=== PATIENT | female | born 1945 | race Caucasian/White ===

== ENCOUNTER → 2016-10-31 | Outpatient (CLI) | payer OTHER | LOC: EDBD → SLEEPLAB 09:51 | DX: G47.33 Obstructive sleep apnea (adult) (pediatric) (principal) ==

== ENCOUNTER 2020-01-15 09:06 | Inpatient (IN) | payer OTHER ==
[2020-01-09 14:07] LABS: HEMATOCRIT 33.6 % (37.0-47.0); HEMOGLOBIN 11.4 gm/dL (12.0-15.0); MCH 31.3 pg (26.0-34.0); MCHC 33.8 g/dL (28.0-37.0); MCV 92.6 fL (80.0-100.0); RBC 3.63 mil/uL (4.20-5.00); RDW 14.3 % (10.5-14.5); WBC 5.4 thou/uL (4.0-11.0)
[2020-01-09 14:26] LABS: ALBUMIN 3.9 g/dL (3.4-5.0); CALCIUM 9.1 mg/dL (8.5-10.1); CREATININE 0.9 mg/dL (0.6-1.0); INR 1.1; POTASSIUM 4.3 mmol/L (3.5-5.1); PROTIME 10.9 Seconds (9.3-11.4)
[2020-01-09 15:23] LABS: URINE BILIRUBIN NEGATIVE (Negative); URINE BLOOD 1+ (Negative); URINE CLARITY CLOUDY; URINE COLOR YELLOW; URINE GLUCOSE-RANDOM* NEGATIVE (Negative); URINE KETONES NEGATIVE (Negative); URINE NITRITE-REFLEX NEGATIVE (Negative); URINE PROTEIN (DIPSTICK) NEGATIVE (Negative); URINE UROBILINOGEN 0.2 E.U./dl (0.2-1.0)
[2020-01-09 15:24] LABS: URINE LEUKOCYTES-REFLEX 2+ (Negative)
[2020-01-09 15:46] LABS: BACTERIA-REFLEX >30 Many /HPF (None Seen); CASTS None Seen /LPF (None Seen); CRYSTALS None Seen /LPF (None Seen); SQUAMOUS 4-10 Moderate /LPF (0-3); URINE WBC-REFLEX >25 Many /HPF (0-5)
--- NOTE | 2020-01-09 15:58 | EKG ---
[facility] [place] [address] ELECTROCARDIOGRAM REPORT Name: GIOVANNI ANTHONY Room #: PRE IN M..#: [id number] Admission: Attend Phys: Melquiades Johnson MD Discharge: Date of : 47 Report #: [id number] THIS REPORT FOR: cc: Annia Rodríguez MD, Carole A. MD Lundgren,Eric Power MD [facility] ~ THIS REPORT FOR: //name// [facility] Test Date: 2020-01-09 Test Time: 14:09:05 Pat Name: GIOVNANI ANTHONY Department: Room: Gender: Technical Producer: Ming AVILA : 1945 Requested By: Melquiades Johnson Order Number: [id number] MD: Eric Eisenberg Measurements Intervals [place] Rate: 85 P: OR: 143 QRS: 33 QRSD: 100 T: 33 QT: 389 QTc: 463 Interpretive Statements Atrial-paced complexes Otherwise no significant abnormality No previous ECG available for comparison Electronically Signed On 01-09-2020 15:58:30 LOGGING SUPERVISOR by Eric Eisenberg [email or web address] <ELECTRONICALLY SIGNED> By: Eric Eisenberg MD, FAC 01/09/20 1558 1409 1409 Eric Eisenberg MD, [facility] /EPI
[2020-01-10 07:08] LABS: GLYCOHEMOGLOBIN (HGB A1C) 5.4 % (4.8-5.6)
[~2020-01-15] VITALS: Ht 157.5 cm; Wt 97.1 kg
[~2020-01-15 09:06] MED LIST: ASA81BEC PO; ATIVAN0.5 M1 PO; CALCIUM-MAGNES1 EAC6 PO; CIPRO500 M1 PO; FISH OIL 1,001000 M3 PO; LAMOTRIGINE100 MG PO; LIPITOR80 MG PO; LOSARTAN POTASS50 MG PO; MAGNESIUM OXID200 MG PO; METFORMIN HCL500 M3 PO; MULTI VITAMIN1 EACH PO; MUPIROCIN15 GM TOP; NORVASC10 MG PO; PROBIOTIC1 EAC3 PO; PROCTO-MED HC30 GM TOP; TOPROL XL25 MG PO; TURMERIC COMPL1 EACH PO; VITAMIN C1000 MG PO; VITAMIN D31250 MC1 PO; WELLBUTRIN XL300 MG PO; ZINC50 M1 PO; [UNRECOGNIZED DRUG - OTHER] PO
[2020-01-15 14:26] VITALS: BP 149/89
[2020-01-15 19:38] VITALS: BP 124/68
[2020-01-16 03:26] VITALS: BP 108/64
[2020-01-16 03:39] LABS: HEMOGLOBIN 8.4 gm/dL (12.0-15.0); MCH 31.3 pg (26.0-34.0); MCHC 33.7 g/dL (28.0-37.0); MCV 92.9 fL (80.0-100.0); RBC 2.69 mil/uL (4.20-5.00); RDW 14.4 % (10.5-14.5); WBC 7.2 thou/uL (4.0-11.0)
--- NOTE | 2020-01-16 07:53 | NUR ---
PT C/O PAIN ON HER R KNEE,MANAGED WITH MED.PT INCONT ,DIONICIO CARE DONE.PT ENCOURAGED TO GET OUT OF BED TO THE BSC,PT STATED THAT SHE COULDN'T AT THE MOMENT.PT REPOSITIONED WHILE IN BED.DRSG TO HER R KNEE DRY AND INTACT.PT ENCOURAGED TO USE HER INCENTIVE SPIROMETER.PT SLEPT WITH CPAP AT HS.REPORT TO AM NURSE.
[2020-01-16 08:07] VITALS: BP 116/60
[2020-01-16 09:04] LABS: POTASSIUM 4.6 mmol/L (3.5-5.1)
--- NOTE | 2020-01-16 11:55 | NUR ---
PT CARE ASSUMED AT 0700. A&Ox4. PT TOLERATING WELL WELL WITH PAIN MEDICATION ON BOARD. PT BUCKELING AND NOT OUT OF BED UNTIL EVALUATED WITH PT. PT WILL NEED REHAB PER PT. CONSULT REQUESTED. TOM DRESSING IN PLACE, DRY AND INTACT. POLARPACK/TEDS/SCD'S IN PLACE. IV PATENT WITH NO REDNESS OR EDEMA. ACHS WITH NO COVERAGE NEEDED THIS SHIFT. COLOSTOMY TAY. PT DOES SELF CARE. IS IN ROOM AND ENCOURAGED. PER PACU PT WILL NEED TO HAVE A NEW BATTERY PLACED ON HER PACEMAKER IN APPROX.8-9 MONTHS. IV PATENT WITH NO REDNESS OR EDEMA,SALINE LOCKED. FALL PROTOCOL IN PLACE. CALL LIGHT IN REACH. WILL CONTINUE TO MONITOR.
--- NOTE | 2020-01-16 14:48 | NUR ---
ASSESSMENT: CM REVIEWED CHART AND SPOKE WITH PATIENT. PT IS S/P R TKR. PT IS ALERT AND ORIENTED X4. PT LIVES IN A HOUSE WITH HER . PT REPORTS ABOUT 3 STEPS WITH HANDRAIL TO ENTER BUT REPORT SHE CAN GO UP A RAMP IF NEEDED. PT REPORTS ONCE INSIDE ALL HER NEEDS ARE ON ONE LEVEL. PT REPORTS HAVING A GRAB BAR AND SHOWER CHAIR AND IS INDEPENDENT WITH ADLS. PT REPORTS HAVING A WALKER AT HOME. PT REPORTS HAVING [facility] IN THE PAST AND PREFERS TO USE THEM AGAIN. PER ATTENDING PLANS ARE FOR PATIENT TO CONTINUE WITH PT/OT AND POSSIBLE DISCHARGE SUNDAY WITH HH VS SNF PENDING HER PROGRESSION. PT REPORTS SHE PREFERS TO GO HOME WITH HH RATHER THEN SNF. [facility] CAN ACCEPT PATIENT FOR HH AT DISCHARE. CONTACT FOR [facility] IS [phone]. FAX FOR [facility]:[phone].
[2020-01-16 15:33] VITALS: BP 100/42
[2020-01-16 16:05] VITALS: BP 100/42
[2020-01-16] MEDS ORDERED: NEURONTIN 300M300 M2 PO (18:09)
[2020-01-16] MEDS ORDERED: DULOXETINE HCL60 MG PO (18:10)
[2020-01-16 22:00] VITALS: BP 104/57
--- NOTE | 2020-01-17 03:41 | NUR ---
ASSUMED PT CARE AT SHIFT CHANGE. PT IS A&OX4. PT HAS A LAC SALINE LOCKED AND PATENT. PT TAKES PAIN MEDICATION FOR HER KNEE. PT IS IN CHAIR AND IS A MAX ASSIST TO GET BACK TO BED. PT STATES THAT SHE IS AFRAID TO FALL. RE ASSURED THE PT THAT WE WOULD NOT LET HER FALL. PT HAS A TOM DRESSING ON HER RIGHT KNEE IS C/D/I. KNEE HIGH SYLVIA HOSE IN PLACE. POLAR PACK IS IN USE. PT IS AN ACHS. PT STATES THAT SHE FEELS IT WOULD BE TOO DIFFICULT TO USE THE BSC AND THAT SHE WOULD JUST USE HER BRIEF. PT HAS AN UPPER LEFT ABD COLOSTOMY WHICH SHE MAINTAINS HERSELF. PT USES CPAP AT NIGHT. WILL CONTINUE TO MONITOR.
[2020-01-17 05:00] VITALS: BP 119/60
[2020-01-17 05:32] LABS: HEMATOCRIT 21.6 % (37.0-47.0); HEMOGLOBIN 7.2 gm/dL (12.0-15.0); MCH 31.3 pg (26.0-34.0); MCHC 33.3 g/dL (28.0-37.0); MCV 94.1 fL (80.0-100.0); RBC 2.3 mil/uL (4.20-5.00); RDW 14.7 % (10.5-14.5); WBC 5.8 thou/uL (4.0-11.0)
[2020-01-17 07:59] VITALS: BP 147/74
[2020-01-17 15:59] VITALS: BP 114/58
[2020-01-17 20:10] VITALS: BP 123/52
--- NOTE | 2020-01-18 01:00 | NUR ---
ASSUMED PT CARE AT 1915. PT IS A&OX4. PT HAS AN IV IN HER LEFT HAND THAT IS PATENT. PT TOLERATES MEDICATION. PT IS ON ROOM AIR. PT IS INCONTINENT. STOOL SAMPLE COLLECTED AND SENT TO LAB. PT HAS AN UPPER LEFT ABDOMINAL COLOSTOMY - THAT SHE MANAGES ON HER OWN. PT IS A MAX ASSIST AND HAS A FEAR OF FALLING. PT IS AN ACHS - BLOOD SUGAR IS 107. PT DENIES NAUSEA. PT COMPLAINS OF PAIN IN HER RIGHT KNEE AND ALL OVER HER BODY. AT THE BEGINING OF THE SHIFT THE PT HAD AN EPISODE OF CRYING BECAUSE SHE SAID THAT ALL DAY NO ONE WOULD ANSWER THE PHONE WHEN SHE CALLED OUT. I RE ASSURED HER THAT SHE WOULD BE TAKEN CARE OF WHEN EVERY SHE CALLED OUT. SHE THEN COMPLAINED OF NOT BEING ABLE TO WALK AND HER LEGS NOT WORKING. PT HAS A TEMP OF 100.2. I RE CHECKED HER TEMP IT WAS 99.1 I ADMINISTERED TYLENOL. HOURLY ROUNDING DONE.
--- NOTE | 2020-01-18 03:57 | NUR ---
THE RN OVERSEEING PATIENT CARE, I AGREE WITH THE ASSESSMENT AND NOTES BY PROGRAM SERVICES ASSISTANT ON THIS PATIENT.
[2020-01-18 05:29] LABS: HEMATOCRIT 20.2 % (37.0-47.0); HEMOGLOBIN 6.9 gm/dL (12.0-15.0); MCH 31.8 pg (26.0-34.0); MCV 93.5 fL (80.0-100.0); RBC 2.16 mil/uL (4.20-5.00); RDW 14.7 % (10.5-14.5); WBC 5.1 thou/uL (4.0-11.0)
[2020-01-18 07:31] VITALS: BP 147/82
[2020-01-18 10:07] VITALS: BP 103/45; BP 109/54; BP 109/60; BP 125/57; BP 127/64
[2020-01-18 14:02] LABS: URINE BILIRUBIN NEGATIVE (Negative); URINE BLOOD 2+ (Negative); URINE CLARITY SL CLOUDY; URINE COLOR YELLOW; URINE GLUCOSE-RANDOM* NEGATIVE (Negative); URINE KETONES NEGATIVE (Negative); URINE NITRITE-REFLEX NEGATIVE (Negative); URINE PROTEIN (DIPSTICK) NEGATIVE (Negative); URINE SPECIFIC GRAVITY 1.025 (1.005-1.035); URINE UROBILINOGEN 0.2 E.U./dl (0.2-1.0)
[2020-01-18 14:07] LABS: URINE LEUKOCYTES-REFLEX 3+ (Negative)
[2020-01-18 14:11] LABS: MUCUS >6 Heavy strn/LPF (None Seen); SQUAMOUS >10 Many /LPF (0-3); URINE WBC-REFLEX >25 Many /HPF (0-5)
[2020-01-18 14:13] LABS: BACTERIA-REFLEX 1-9 Few /HPF (None Seen); CASTS None Seen /LPF (None Seen); CRYSTALS None Seen /LPF (None Seen)
[2020-01-18 15:13] VITALS: BP 110/58
--- NOTE | 2020-01-18 16:31 | NUR ---
Assumed care of pt. at 0700. Pt. was calm and cooperative. Pt. was able to get up from chair to commode with 2 person minimal assist in the early afternoon while her son was present. Urine sample was finally collected and sent to lab. Pt. seemed much more alert in the morning and physically capable than she was yesterday. Pt. began to decline in ability with PT in the afternoon and need lifting machine to get back in bed. Fall precautions in place.
[2020-01-18 19:14] VITALS: BP 136/68
[2020-01-19 04:36] VITALS: BP 147/69
--- NOTE | 2020-01-19 05:26 | NUR ---
PATIENT ALERT AND ORIENTED X4. TEMP OF 99.9 AT BEGINNING OF SHIFT AND MEDICATED WITH TYLENOL - TEMP 98.8. GIVEN PRN HYDROCODONE FOR PAIN WITH GOOD RESULTS. PATIENT ABLE TO SLEEP DURING THE NIGHT. PATIENT QUESTIONED THIS NURSE ABOUT HER PAIN MEDICATION, HOWEVER, I COULD NOT GET HER TO UNDERSTAND THE NEW DOSEAGE OF VICODIN. PATIENT CALLED HER SON AND HE WAS ABLE TO CLARIFY HER PAIN MEDICATION AND DOSEAGE WITH HER. BS MONTIORED PER ORDER. WILL MONITOR.
[2020-01-19 05:38] LABS: HEMATOCRIT 22.2 % (37.0-47.0); HEMOGLOBIN 7.4 gm/dL (12.0-15.0); MCH 31.2 pg (26.0-34.0); MCHC 33.4 g/dL (28.0-37.0); MCV 93.4 fL (80.0-100.0); RBC 2.38 mil/uL (4.20-5.00); RDW 14.9 % (10.5-14.5); WBC 4.9 thou/uL (4.0-11.0)
[2020-01-19 07:02] VITALS: BP 165/82
--- NOTE | 2020-01-19 13:19 | NUR ---
Pt SEEN AGAIN REGARDING 5N CONSULT THIS MORNING; SEEN BY VALERIA ROCHE NP. Pt STILL DOES NOT HAVE MEDICAL NECESSITY FOR 5N ACUTE REHAB PER VALERIA. THIS WAS COMMUNICATED TO CASE MGMT. THANK YOU FOR THIS REFERRAL.
--- NOTE | 2020-01-19 14:08 | NUR ---
ASSUMED CARE AT 0700. PT IS A&O X4. PT IS PLEASANT. DIET IS REGULAR. PT IS ON RA. VSS. PT COMPLAINS OF PAIN AND DENIES N/V/D. SYLVIA/SCD HOSE ARE IN PLACE. FALL PRECAUTION. CALL LIGHT WITHIN REACH. IV SHOWS NO SIGNS OF REDNESS OR SWELLING. PT/OT. PAIN MEDICATION WAS GIVEN TO PT.
[2020-01-19 15:05] VITALS: BP 113/48
--- NOTE | 2020-01-19 16:16 | NUR ---
ON-GOING ASSESSMENT: CM REVIEWED CHART. 5N AND [facility] STATING PT IS NOT A CANIDATE FOR THEIR ACUTE REHAB. CM RELAYED THIS TO PATIENT AND SHE IS UPSET THEY CANNOT TAKE HER. CM DISCUSSED SNF OPTION. PT STATING SHE DOES NOT WANT TO GO TO A SNF. PT REPORTS SHE IS HOPING TO STAY ANOTHER DAY TO PROGRESS WITH THERAPY AND GO HOME WITH HH. CM NOTIFIED ATTENDING WHO IS GOING TO SPEAK WITH PATIENTS SON ABOUT POSSIBLE SNF NEED. CM WILL CONTINUE TO FOLLOW.
[2020-01-19 19:14] VITALS: BP 140/75
--- NOTE | 2020-01-20 06:00 | NUR ---
PT C/O PAIN ON HER L KNEE,MANAGED WITH MED.DRSG TO HER KNEE DRY AND INTACT WITH POLAR PACK IN PLACE.EDEMA NOTED TO HER BLE,ELEVATED .PT ENCOURAGED TO USE HER INCENTIVE SPIROMETER.NO BM SO FAR.PT RESTING ON HER BED AT THIS TIME.CALL LIGHT WITHIN REACH.
[2020-01-20 06:07] VITALS: BP 139/69
[2020-01-20 08:00] VITALS: BP 132/87
[2020-01-20 10:05] LABS: HEMATOCRIT 22.1 % (37.0-47.0); HEMOGLOBIN 7.5 gm/dL (12.0-15.0); MCH 31.3 pg (26.0-34.0); MCHC 33.8 g/dL (28.0-37.0); MCV 92.7 fL (80.0-100.0); RBC 2.38 mil/uL (4.20-5.00); RDW 14.5 % (10.5-14.5); WBC 5.3 thou/uL (4.0-11.0)
[2020-01-20 10:18] LABS: CREATININE 0.8 mg/dL (0.6-1.0); MAGNESIUM 2.2 mg/dL (1.8-2.4); POTASSIUM 3.9 mmol/L (3.5-5.1)
--- NOTE | 2020-01-20 13:37 | NUR ---
on-going assessment: CM REVIEWED CHART AND SPOKE WITH ATTENDING. PT IS SLOWLY PROGRESSING TOWARDS DISCHARGE GOALS. PT AND HER FAMILY ARE NOT WANTING HER TO GO TO A SNF AND PT IS HOPEFUL SHE WILL PROGRESS ENOUGH TO DISCHARGE HOME [facility] ([facility] HAS ALREADY ACCEPTED AND IS HER CHOICE OF HH). PLANS ARE FOR PT TO CONTINUE TO WORK WITH PHYSICAL THERAPY AND LIKELY DISCHARGE HOME TOMORROW WITH HOME HEALTH. CM NOTIFIED [facility] OF POSSIBLE DISCHARGE TOMORROW.
[2020-01-20 15:15] VITALS: BP 129/88
[2020-01-20 19:21] VITALS: BP 128/67
--- NOTE | 2020-01-20 19:55 | NUR ---
PT IS AOX4, VSS, PAIN IN LEFT KNEE CONTROLLED WITH ORAL PAIN ANALGESICS. PT TAKES CARE OF HER OWN OSTOMY BAG. UP TO RECLINER, WORKING WELL WITH PHYSICAL THERAPY. NO DISTRESS NOTED, CALL LIGHT IN REACH. TOM DRESSING CDI, TEDS, AND SCDS APPLIED. WILL CONTINUE TO MONITOR.
--- NOTE | 2020-01-21 05:00 | NUR ---
PT IS PLEASANT AND COOPERATIVE.FORGETFUL AT TIMES.SELF CARE TO OSTOMY. WITH BLADDER INCONTINENCE.R KNEE WITH TOM DRSG IN PLACE, USING POLAR JER.AFEBRILE. DID NOT REQUIRE ANY PAIN MEDS IN THR NOC. SOME PEDAL EDEMA NOTED. SCDS IN PLACE. CALLS WITH NEEDS.
[2020-01-21 05:17] VITALS: BP 148/78
[2020-01-21 09:14] VITALS: BP 145/89
--- NOTE | 2020-01-21 14:08 | NUR ---
ON-GOING ASSESSMENT: CM REVIEWED CHART AND SPOKE WITH PT. PT IS TO DISCHARGE HOME TODAY WITH HER WITH [facility]. CM NOTIFIED BECCA AT [facility] THAT PT IS DISCHARGING TODAY AND FAXED DISCHARGE ORDERS. ANIYA SPOKE [facility] PT WHO REPORTS SHE HAS ALL THE EQUIPMENT AT HOME SHE NEEDS INCLUDING WALKER AND WHEELCHAIR. PT REPORTS NO FURTHER NEEDS FROM CM AT DISCHARGE.
[2020-01-21 14:43] VITALS: BP 100/42
--- NOTE | 2020-01-21 21:00 | NUR ---
ASSUMED CARE OF PT AT 0700. PT IS A&OX4 AND VITAL SIGNS ARE STABLE. PT REPORTS PAIN, MANAGED WITH PO MEDICATIONS. DR HILLMAN FINANCIAL COACH CONTACTED AND PT OK TO DISCHARGE AFTER AFTERNOON THERAPY. PT DISCHARGED AT 1600. DISCHARGE EDUCATION, MEDICATION, F/U APPOINTMENTS, AND INSTRUCTIONS COMPLETED, PT DENIES QUESTIONS AT DISCHARGE. PT SIGNED DISCHARGE PAPERWORK, BELONGINGS REMOVED AT TIME OF DISCHARGE.
== END 2020-01-21 16:00 | disposition home health service (06) | DRG 470 ==
LOC: PRE 09:06 → 4S 12:47 → TBA 12:47 → PRE 12:53 → 4S 18:23
PROVIDERS: Internal Medicine; ADMIT Orthopaedic Surgery; ATTEND Orthopaedic Surgery
DX: M17.11 Unilateral primary osteoarthritis, right knee (principal); D62 Acute posthemorrhagic anemia; F41.9 Anxiety disorder, unspecified; I10 Essential (primary) hypertension; E66.9 Obesity, unspecified; E11.42 Type 2 diabetes mellitus with diabetic polyneuropathy; G47.33 Obstructive sleep apnea (adult) (pediatric); Z20.828 Contact with and (suspected) exposure to other viral communicable diseases; F32.9 Major depressive disorder, single episode, unspecified; Z85.3 Personal history of malignant neoplasm of breast; Z79.82 Long term (current) use of aspirin; Z79.899 Other long term (current) drug therapy; Z93.3 Colostomy status; Z68.39 Body mass index [BMI] 39.0-39.9, adult; Z23 Encounter for immunization
CPT/HCPCS: 10195; 50010; 50415; 50954; 51130; 51225; 51320; 51412; 52001; 52282; 53078; 54118; 56527; 56528; 57095; 57103; 57104; 57110; 57127; 57180; 64039

== ENCOUNTER 2020-02-02 02:17 | Emergency (ER) | payer OTHER ==
[~2020-02-02] VITALS: Ht 154.9 cm; Wt 97.5 kg
--- NOTE | ~2020-02-02 | EMS ---
[address] [address] EMS Patient Care Report Name: GIOVANNI ANTHONY [facility] [id number] Admission: 02/02/20 Attend Phys: Discharge: Date of : 47 Report #: [id number] THIS REPORT FOR: //name// Report Transmitted: 02/02/2020 03:59 EMS Care Summary [facility] MED-ACT Incident [id number] @ 02/02/2020 01:39 Incident Location [address] [place], [place] [address] Patient GIOVANNI ANTHONY Female, 74 Years 1945 Patient Address [address] [place], [place] [address] Patient History Type 2 Diabetes, Patient Allergies No known allergies, Patient Medications Unknown, Chief Complaint knee pain when I move my leg Disposition Transported No Lights/[place] Reason Sick Person Transported To [facility] Narrative C- knee pain H- Dispatched to a residence for a sick ill subject. The pt is found sitting in her wheelchair in the kitchen awake and in no apparent distress. The pt said [address] [address] EMS Patient Care Report Name: GIOVANNI ANTHONY [facility] [id number] Admission: 02/02/20 Attend Phys: Discharge: Date of : 47 Report #: [id number] she had a knee replacement two weeks ago. There were no complications with the surgery and the pt is able to get around with a walker and is doing physical therapy several times a week. Tonight the pt said when she tried to lift her right leg up or stand there is a very sharp pain about where the incision was made. When the pt does not try to move her leg she is not in any pain. When the pt does try to move her leg she rates her pain a 10/10. Once the pt is on the cot and comfortable she denies any pain so pain medication was not administered. The pt also mentions she took a 10 mg hydrocodone about two hours ago and it has not helped with the pain at all. Pt denies any type of injury that could have caused with pain A- see assessment tab - pt's incision is not able to be evaluated due to the pt wearing very tight pants and she said the bandaging is still in place. R- Vitals. T- The pt is able to stand on her left leg with assistance and sit on the cot. She is moved to the ambulance and transported to [facility] without lights and sirens. The pt remained unchanged and without pain during transport. Upon arrival at ED the pt is moved to ED bed via sheet drag and pt care/report left with nurse. Initial Vitals @01:50P: 87,R: 12,BP: 184/86,SpO2: 98, @02:05P: 85,R: 12,BP: 187/84,Pain: 0/10,GCS: 15,Temp: 98.9F,SpO2: 98,Revised Trauma: 12, Assessments @01:47MENTAL:Person Oriented,Time Oriented,Event Oriented,Place Oriented,SKIN:HEENT:Head/Face: No Abnormalities,Neck/Airway: No Abnormalities,LUNG SOUNDS:General: No Abnormalities,ABDOMEN:General: No Abnormalities,PELVIS//GI:EXTREMITIES:Left Arm: No Abnormalities,Right Arm: No Abnormalities,Left Leg: No Abnormalities,Right Leg: No Abnormalities,PULSE:NEURO:No Abnormalities, Impression Pain (Non-Traumatic) Procedures @01:47ALS AssessmentResponse: UnchangedSucceeded@01:50Surgical Mask on PatientResponse: Unchanged Timeline 01:37,Call Received 01:37,Psap Call [facility] [address] [place] [address] EMS Patient Care Report Name: GIOVANNI ANTHONY Room #: [facility]#: [id number] Admission: 02/02/20 Attend Phys: Discharge: Date of : 47 Report #: [id number] 01:39,Dispatched 01:40,En Route 01:44,On Scene 01:45,At Patient 01:47,ALS Assessment,Response: UnchangedSucceeded, 01:50,Surgical Mask on Patient,Response: Unchanged 01:50,BP: 184/86 M,PULSE: 87,RR: 12 R,SPO2: 98 Ox,ETCO2: ,BG: ,PAIN: ,GCS: , 02:03,Depart Scene 02:05,BP: 187/84 M,PULSE: 85,RR: 12 R,SPO2: 98 Ox,ETCO2: ,BG: ,PAIN: 0,GCS: 15, 02:13,At Destination 02:20,Transfer Patient 02:29,Call Closed Disclaimer v1.1 Copyright 2020 [employer] This EMS Care Summary contains data elements from the applicable legal record (which may be displayed differently). It is designed to provide pertinent information for the following purposes: continuity of care, clinical quality, and state data reporting. The complete legal record is available to ED staff and administrators of the receiving hospital in [employer]'s Patient Tracker. All data is provided "as is."
[~2020-02-02 02:17] MED LIST changes: +DULOXETINE HCL60 MG PO; +NEURONTIN 300M300 M2 PO
[2020-02-02 04:57] VITALS: BP 161/53
== END 2020-02-02 04:57 | disposition home or self-care (01) ==
LOC: ER 02:17
DX: S76.111A Strain of right quadriceps muscle, fascia and tendon, initial encounter (principal); I10 Essential (primary) hypertension; E78.5 Hyperlipidemia, unspecified; E11.9 Type 2 diabetes mellitus without complications; K21.9 Gastro-esophageal reflux disease without esophagitis; Z95.0 Presence of cardiac pacemaker; Z79.82 Long term (current) use of aspirin; Z79.899 Other long term (current) drug therapy; X50.1XXA Overexertion from prolonged static or awkward postures, initial encounter; Y93.89 Activity, other specified; Y92.89 Other specified places as the place of occurrence of the external cause; Y99.8 Other external cause status